=== PATIENT | male | born 2000 | race Two or more races ===

== ENCOUNTER 2023-07-03 15:47 | Emergency (ER) | payer BC ==
[~2023-07-03] VITALS: Ht 188 cm; Wt 91.2 kg
[2023-07-03 16:29] VITALS: BP 128/62; TEMP 98.2; O2SAT 100
[2023-07-03] MEDS ORDERED: IBUPROFEN 600 MG TABLET ONE (17:26)
[2023-07-03] MEDS ORDERED: CYCLOBENZAPRINE 10 MG TABLET ONE (17:26)
[2023-07-03] MEDS: IBUPROFEN 600 MG TABLET PO ONE (17:29)
[2023-07-03] MEDS: CYCLOBENZAPRINE 10 MG TABLET PO ONE (17:29)
[2023-07-03] MEDS ORDERED: CYCL5TAB PO (17:33)
== END 2023-07-03 17:57 | disposition home or self-care (01) ==
LOC: ER 16:14
DX: M54.50 Low back pain, unspecified (principal); Z60.2 Problems related to living alone